=== PATIENT | male | born 1980 | race Two or more races ===

== ENCOUNTER 2016-10-13 23:12 | Emergency (ER) | payer BC, OTHER ==
[~2016-10-13] VITALS: Ht 182.9 cm; Wt 174.6 kg
[2016-10-14 00:46] LABS: Albumin 3.8 g/dL (3.4-5.0); Anion Gap 7 (5-15); Aspartate Aminotransferase 44 U/L (15-37); Basophils # (auto) 0 uL; Basophils % (auto) 0.5 % (0.0-2.0); Blood Urea Nitrogen 16 mg/dL (7-18); Calcium 9.2 mg/dL (8.5-10.1); Carbon Dioxide 31 mmol/L (21-32); Chloride 102 mmol/L (98-107); DEFINITIVE VIEW TRANSMISSION; Eosinophils # (auto) 0.2 uL; Eosinophils % (auto) 2.9 % (0.0-7.0); GFR African American 93 mL/min; GFR Non-African American 77 mL/min; Glucose 109 mg/dL (74-106); Hematocrit 49.4 % (41.0-53.0); Hemoglobin 15.9 g/dL (13.5-17.5); Lymphocytes # (auto) 1.9 uL; Lymphocytes % (auto) 23.9 % (10.0-50.0); Magnesium 1.7 mg/dL (1.6-2.6); Mean Corpuscular Hemoglobin 25.9 pg (28.0-32.0); Mean Corpuscular Hgb Conc. 32.3 g/dL (32.0-36.0); Mean Corpuscular Volume 80.4 fL (80.0-100.0); Mean Platelet Volume 7.9 fL (7.4-10.4); Monocytes # (auto) 0.5 uL; Neutrophils # (auto) 5.1 uL; Neutrophils % (auto) 66.7 % (37.0-80.0); Platelet Count (auto) 229 10^3/uL (140-450); Potassium 4.3 mmol/L (3.5-5.1); Sodium 140 mmol/L (136-145); White Blood Cell 7.8 10^3/uL (4.4-10.8)
[2016-10-14 00:51] LABS: Alkaline Phosphatase 93 U/L (45-117); Bilirubin, Total 0.5 mg/dL (0.2-1.0); Total Protein 7.7 g/dL (6.4-8.2)
[2016-10-14 00:54] LABS: B-Type Natriuretic Peptide < 5.0 pg/mL (0-100); Temperature: 22.5 C (20.0-25.0)
[2016-10-14] MEDS ORDERED: ONDANSETRON HCL 4 MG/2 ML VIAL IV ONE (04:45)
[2016-10-14] MEDS ORDERED: HYDROmorphone HCL 2 MG/ML VL IV ONE ×2 (04:45→06:15)
[2016-10-14 05:47] LABS: INR 1.05 (0.9-1.15); Partial Thromboplastin Time 36.3 sec (22.64-33.71); Prothrombin Time 11.4 sec (9.37-12.3)
[2016-10-14 06:27] LABS: Urine Bilirubin Negative (Negative); Urine Blood Negative /uL (Negative); Urine Color Yellow (Yellow); Urine Glucose Normal (Normal); Urine Ketone Negative (Negative); Urine Mucus FEW (None Seen); Urine Nitrite Negative (Negative); Urine RBC 4 /hpf (0 - 3); Urine Squamous Epithelial Cell FEW /hpf (<5); Urine Urobilinogen Normal (Negative); Urine pH 5.5 (5.0-8.0)
[2016-10-14 06:49] VITALS: BP 158/90
== END 2016-10-14 06:55 | disposition home or self-care (01) ==
LOC: ER 23:15
DX: R07.89 Other chest pain (principal); R09.1 Pleurisy; I10 Essential (primary) hypertension; G43.909 Migraine, unspecified, not intractable, without status migrainosus; Z88.8 Allergy status to other drugs, medicaments and biological substances; R42 Dizziness and giddiness
CPT/HCPCS: 36415; 70450; 71020; 80053; 81001; 83735; 83880; 84484; 85025; 85610; 85730; 93005; 96374; 96375; 96376; 99285; J1170; J2405

== ENCOUNTER → 2016-10-17 | Outpatient (CLI) | payer BC ==
[2016-10-17 15:24] LABS: Urine Bilirubin Negative (Negative); Urine Blood Negative /uL (Negative); Urine Color Yellow (Yellow); Urine Glucose Normal (Normal); Urine Ketone Negative (Negative); Urine Mucus FEW (None Seen); Urine Nitrite Negative (Negative); Urine RBC <1 /hpf (0 - 3); Urine Squamous Epithelial Cell FEW /hpf (<5); Urine Urobilinogen Normal (Negative); Urine pH 5.5 (5.0-8.0)
[2016-10-17 15:28] LABS: Basophils # (auto) 0 uL; Basophils % (auto) 0.7 % (0.0-2.0); DEFINITIVE VIEW TRANSMISSION; Eosinophils # (auto) 0.2 uL; Eosinophils % (auto) 3.6 % (0.0-7.0); Hematocrit 49.9 % (41.0-53.0); Hemoglobin 16.9 g/dL (13.5-17.5); Lymphocytes # (auto) 1.5 uL; Lymphocytes % (auto) 22.8 % (10.0-50.0); Mean Corpuscular Hgb Conc. 33.8 g/dL (32.0-36.0); Mean Corpuscular Volume 79.8 fL (80.0-100.0); Mean Platelet Volume 7.6 fL (7.4-10.4); Monocytes # (auto) 0.5 uL; Monocytes % (auto) 7.3 % (0.0-12.0); Neutrophils # (auto) 4.2 uL; Neutrophils % (auto) 65.6 % (37.0-80.0); Platelet Count (auto) 223 10^3/uL (140-450); White Blood Cell 6.4 10^3/uL (4.4-10.8)
[2016-10-17 16:09] LABS: Albumin 3.8 g/dL (3.4-5.0); BUN/Creatinine Ratio 13.7; Bilirubin, Total 0.6 mg/dL (0.2-1.0); Calcium 8.8 mg/dL (8.5-10.1); Potassium 4.3 mmol/L (3.5-5.1)
== END | disposition home or self-care (01) ==
LOC: LAB 14:59
DX: E78.5 Hyperlipidemia, unspecified (principal); R00.2 Palpitations; Z87.19 Personal history of other diseases of the digestive system; E66.3 Overweight
CPT/HCPCS: 36415; 80053; 80061; 81001; 83036; 84439; 84443; 85025; 85652

== ENCOUNTER 2017-10-04 06:06 | Inpatient (IN) | payer OTHER ==
[2017-09-06 12:14] LABS: Basophils # (auto) 0 uL; Eosinophils # (auto) 0.2 uL; Eosinophils % (auto) 3.6 % (0.0-7.0); Monocytes # (auto) 0.4 uL; Neutrophils # (auto) 3.3 uL; White Blood Cell 5.5 10^3/uL (4.4-10.8)
[2017-09-06 12:16] LABS: Basophils % (auto) 0.5 % (0.0-2.0); Hematocrit 48.7 % (41.0-53.0); Hemoglobin 16.1 g/dL (13.5-17.5); Lymphocytes # (auto) 1.6 uL; Lymphocytes % (auto) 29.1 % (10.0-50.0); Mean Corpuscular Hemoglobin 26.5 pg (28.0-32.0); Mean Corpuscular Hgb Conc. 33.1 g/dL (32.0-36.0); Monocytes % (auto) 7.1 % (0.0-12.0); Neutrophils % (auto) 59.7 % (37.0-80.0); Nucleated Red Blood Cells % 0.1 %; Platelet Count (auto) 214 10^3/uL (140-450); Red Blood Cells 6.09 10^6/uL (4.5-5.90); Red Cell Distribution Width 16.5 % (11.8-14.3)
[2017-09-06 12:29] LABS: INR 1.03 (0.9-1.15); Partial Thromboplastin Time 38.6 sec (22.64-33.71); Prothrombin Time 11.2 sec (9.37-12.3)
[2017-09-06 12:31] LABS: Urine Bacteria NONE SEEN /hpf (None Seen); Urine Blood Negative /uL (Negative); Urine Specific Gravity 1.029 (1.001-1.035); Urine WBC 12 /hpf (0 - 3)
[2017-09-06 12:38] LABS: Albumin 3.8 g/dL (3.4-5.0); BUN/Creatinine Ratio 11.2; Bilirubin, Total 0.4 mg/dL (0.2-1.0); Calcium 8.9 mg/dL (8.5-10.1); Total Protein 8.4 g/dL (6.4-8.2)
[2017-10-02 11:04] LABS: Urine WBC None Seen /hpf (0 - 3)
[2017-10-02 11:14] LABS: Basophils # (auto) 0 uL; Basophils % (auto) 0.4 % (0.0-2.0); Eosinophils # (auto) 0.2 uL; Eosinophils % (auto) 3.6 % (0.0-7.0); Hematocrit 44.8 % (41.0-53.0); Lymphocytes # (auto) 1.3 uL; Lymphocytes % (auto) 21.9 % (10.0-50.0); Mean Corpuscular Hemoglobin 26.8 pg (28.0-32.0); Mean Corpuscular Hgb Conc. 33.5 g/dL (32.0-36.0); Mean Corpuscular Volume 79.9 fL (80.0-100.0); Monocytes # (auto) 0.4 uL; Monocytes % (auto) 6.5 % (0.0-12.0); Neutrophils # (auto) 3.9 uL; Neutrophils % (auto) 67.6 % (37.0-80.0); Nucleated Red Blood Cells % 0.4 %; Platelet Count (auto) 178 10^3/uL (140-450); Red Blood Cells 5.61 10^6/uL (4.5-5.90); Red Cell Distribution Width 15.7 % (11.8-14.3); White Blood Cell 5.8 10^3/uL (4.4-10.8)
[2017-10-02 11:24] LABS: INR 1.07 (0.9-1.15); Partial Thromboplastin Time 36.5 sec (22.64-33.71); Prothrombin Time 11.7 sec (9.37-12.3)
[2017-10-02 11:37] LABS: Albumin 3.6 g/dL (3.4-5.0); BUN/Creatinine Ratio 19.3; Bilirubin, Total 0.5 mg/dL (0.2-1.0); Calcium 8.7 mg/dL (8.5-10.1); Potassium 3.9 mmol/L (3.5-5.1); Total Protein 7.8 g/dL (6.4-8.2); Urine Bacteria NONE SEEN /hpf (None Seen); Urine Blood Negative /uL (Negative)
[~2017-10-04] VITALS: Ht 182.9 cm; Wt 171.3 kg
[~2017-10-04 06:06] MED LIST: AMITR PO; AMITRIP PO; CHOL1TAB29 PO; DILT240C PO; ISOS30TA4 PO; LISI-646 PO; MESA0.37 PO; PANT40TA2 PO; PRAZ5CAP PO; SERT-274 PO
[2017-10-04] MEDS ORDERED: ceFAZolin 1GM/100ML 50 ML IV ONE (07:40)
[2017-10-04] MEDS ORDERED: InsuLIN REG 1unit/0.01ml Soln (100units/ml) ONE ×2 (07:46→09:26)
[2017-10-04] MEDS ORDERED: NEOMYCIN-BACITRACIN-POLYM 15GM TOP OINT TOP ONE (08:15)
[2017-10-04] MEDS ORDERED: MORPHINE SULFATE 4 MG/ML SYR/VIAL IV PRN ×3 (08:15→12:00)
[2017-10-04] MEDS ORDERED: NITROGLYCERIN 0.4 MG SL TAB SL PRN (08:15)
[2017-10-04] MEDS ORDERED: BUPIVACAINE W/ EPINEPH 0.25% INJ 50ML MDV ONE (08:15)
[2017-10-04] MEDS ORDERED: LIDOCAINE W/ EPINEPHRINE 1 % INJ 30ML ONE (08:15)
[2017-10-04] MEDS ORDERED: fentaNYL CITRATE 100 MCG/2 ML VL ONE (08:20)
[2017-10-04] MEDS ORDERED: MIDAZOLAM HCL 1MG/1ML-2 ML VIAL ONE (08:20)
[2017-10-04] MEDS ORDERED: KETOROLAC TROMETH 30 MG/ML 1ML VIAL ONE (08:29)
[2017-10-04] MEDS ORDERED: ETOMIDATE (2MG/ML) 20ML VIAL IV ONE (08:29)
[2017-10-04] MEDS ORDERED: METOCLOPRAMIDE HCL 5MG/ml INJ 2ml VIAL ONE (08:29)
[2017-10-04] MEDS ORDERED: DEXAMETHASONE SOD PHOS 10MG/1ML VIAL INJ ONE (08:29)
[2017-10-04] MEDS ORDERED: SUCCINYLCHOLINE CHLORIDE 20 MG/ML 10ML VIAL IV ONE (09:15)
[2017-10-04] MEDS ORDERED: ROCURONIUM 10MG/ML 10ML VIAL IV ONE (09:15)
[2017-10-04] MEDS ORDERED: NEOSTIGMINE 1 MG/ML INJ (10mg/10ML VIAL) ONE (09:54)
[2017-10-04] MEDS ORDERED: GLYCOPYRROLATE 0.2 MG/ML 1ML VIAL ONE (09:54)
[2017-10-04] MEDS ORDERED: MIDAZOLAM HCL 1MG/1ML-2 ML VIAL IV PRN (10:30)
[2017-10-04] MEDS ORDERED: ACCU-CHEK COMFORT CURVE STRIP VI ONE (10:30)
[2017-10-04] MEDS ORDERED: LABETALOL HCL 5 MG/ML 4ML SYRINGE IV PRN (10:30)
[2017-10-04] MEDS ORDERED: ePHEDrine SULFATE 50 MG/ML AMP IV PRN (10:30)
[2017-10-04] MEDS ORDERED: ONDANSETRON HCL 4 MG/2 ML VIAL IV ONE ×2 (10:30→10:40)
[2017-10-04] MEDS ORDERED: KETOROLAC TROMETH 30 MG/ML 1ML VIAL IV ONE (10:30)
[2017-10-04] MEDS ORDERED: ONDANSETRON HCL 4 MG/2 ML VIAL ONE (10:38)
[2017-10-04] MEDS ORDERED: DEXTROSE (50%) 50ML SYRG IV PRN ×2 (12:00→17:45)
[2017-10-04] MEDS ORDERED: ONDANSETRON HCL 4 MG/2 ML VIAL IV PRN (12:00)
[2017-10-04] MEDS ORDERED: metFORMIN HYDROCHLORIDE 500 MG TAB PO ONE (12:00)
[2017-10-04] MEDS ORDERED: PANTOPRAZOLE 40 MG TAB PO ONE (12:30)
[2017-10-04] MEDS ORDERED: DILTIAZEM HCL 180MG ER CAP PO ONE (12:30)
[2017-10-04] MEDS ORDERED: LISINOPRIL 10 MG TAB PO ONE (12:30)
[2017-10-04] MEDS ORDERED: SERTRALINE HCL 50 MG TAB PO ONE (12:30)
[2017-10-04] MEDS ORDERED: ISOSORBIDE MONONITRATE 60 MG TAB PO ONE (12:30)
[2017-10-04 13:00] VITALS: BP_SYST 112; BP_SYST 166; BP_DIAS 61; BP_DIAS 72
[2017-10-04] MEDS: PROMETHAZINE HCL 25 MG/ML 1ML IV PRN ×2 (13:04→17:03)
[2017-10-04 13:11] LABS: Basophils # (auto) 0 uL; Basophils % (auto) 0.2 % (0.0-2.0); Eosinophils # (auto) 0 uL; Eosinophils % (auto) 0.5 % (0.0-7.0); Lymphocytes # (auto) 0.7 uL; Monocytes # (auto) 0.2 uL; Monocytes % (auto) 2.4 % (0.0-12.0); Nucleated Red Blood Cells % 0.1 %
[2017-10-04 13:13] LABS: Hematocrit 46.1 % (41.0-53.0); Hemoglobin 15.2 g/dL (13.5-17.5); Lymphocytes % (auto) 10.2 % (10.0-50.0); Mean Corpuscular Hemoglobin 26.3 pg (28.0-32.0); Mean Corpuscular Volume 79.5 fL (80.0-100.0); Neutrophils # (auto) 5.9 uL; Neutrophils % (auto) 86.7 % (37.0-80.0); Platelet Count (auto) 186 10^3/uL (140-450); Red Cell Distribution Width 16.2 % (11.8-14.3); White Blood Cell 6.9 10^3/uL (4.4-10.8)
[2017-10-04 13:30] LABS: Albumin 3.7 g/dL (3.4-5.0); BUN/Creatinine Ratio 16.9; Bilirubin, Total 0.8 mg/dL (0.2-1.0); Calcium 8.6 mg/dL (8.5-10.1); Potassium 4.7 mmol/L (3.5-5.1); Total Protein 7.6 g/dL (6.4-8.2)
[2017-10-04 14:19] VITALS: BP 112/61
[2017-10-04 14:25] LABS: Urine Bacteria NONE SEEN /hpf (None Seen); Urine Blood Negative /uL (Negative); Urine Specific Gravity 1.019 (1.001-1.035); Urine WBC 24 /hpf (0 - 3)
[2017-10-04 17:00] VITALS: BP 120/62
[2017-10-04] MEDS ORDERED: InsuLIN REG 1unit/0.01ml Soln (100units/ml) SC SCH ×2 (17:00→22:00)
[2017-10-04] MEDS ORDERED: ACCU-CHEK COMFORT CURVE STRIP VI SCH (17:00)
[2017-10-04] MEDS: MORPHINE SULFATE 4 MG/ML SYR/VIAL IV PRN ×2 (17:03→22:06)
[2017-10-04] MEDS ORDERED: InsuLIN REG 1unit/0.01ml Soln (100units/ml) IV ONE (17:30)
[2017-10-04] MEDS: MESALAMINE 400mg Delayed Release Cap PO SCH (17:58)
[2017-10-04] MEDS: metFORMIN HYDROCHLORIDE 500 MG TAB PO SCH (17:58)
[2017-10-04] MEDS: ACCU-CHEK COMFORT CURVE STRIP VI SCH (20:42)
[2017-10-04] MEDS: InsuLIN REG 1unit/0.01ml Soln (100units/ml) SC SCH (20:42)
[2017-10-04 21:57] VITALS: BP 120/62
[2017-10-04 22:00] VITALS: BP 110/87
[2017-10-04] MEDS: AMITRIPTYLINE HCL 25 MG TAB PO SCH (22:05)
[2017-10-04] MEDS: ISOSORBIDE MONONITRATE 60 MG TAB PO SCH (22:05)
[2017-10-04] MEDS: HYDROcodone-ACET 5/325MG TAB PO PRN (23:59)
[2017-10-05] MEDS: ACCU-CHEK COMFORT CURVE STRIP VI SCH ×6 (00:01→22:59)
[2017-10-05] MEDS: MORPHINE SULFATE 4 MG/ML SYR/VIAL IV PRN ×4 (02:35→21:18)
[2017-10-05] MEDS: PROMETHAZINE HCL 25 MG/ML 1ML IV PRN ×4 (02:35→21:17)
[2017-10-05] MEDS: InsuLIN REG 1unit/0.01ml Soln (100units/ml) SC SCH ×6 (04:01→22:58)
[2017-10-05 05:45] VITALS: BP 136/72
[2017-10-05] MEDS: metFORMIN HYDROCHLORIDE 500 MG TAB PO SCH ×2 (06:05→18:07)
[2017-10-05] MEDS: HYDROcodone-ACET 5/325MG TAB PO PRN (06:06)
[2017-10-05 08:33] VITALS: BP 126/68
[2017-10-05] MEDS: DILTIAZEM HCL 180MG ER CAP PO SCH (08:57)
[2017-10-05] MEDS: PANTOPRAZOLE 40 MG TAB PO SCH (08:57)
[2017-10-05] MEDS: SERTRALINE HCL 50 MG TAB PO SCH (08:57)
[2017-10-05] MEDS: LISINOPRIL 10 MG TAB PO SCH (10:00)
[2017-10-05] MEDS ORDERED: ISOSORBIDE MONONITRATE 60 MG TAB PO SCH (10:00)
[2017-10-05 14:30] VITALS: BP 126/74
[2017-10-05] MEDS ORDERED: GLIMEPIRIDE 2 MG TAB PO ONE (15:00)
[2017-10-05] MEDS: DOCUSATE SOD 100 MG CAP PO SCH ×2 (15:15→21:17)
[2017-10-05] MEDS: HYDROcodone-ACET 10/325MG TAB PO PRN (16:40)
[2017-10-05 17:19] VITALS: BP 122/76
[2017-10-05] MEDS: MESALAMINE 400mg Delayed Release Cap PO SCH (18:06)
[2017-10-05] MEDS ORDERED: DEXTROSE (50%) 50ML SYRG IV PRN (19:15)
[2017-10-05] MEDS: ISOSORBIDE MONONITRATE 60 MG TAB PO SCH (21:16)
[2017-10-05] MEDS: AMITRIPTYLINE HCL 25 MG TAB PO SCH (21:17)
[2017-10-05 22:00] VITALS: BP 113/63
[2017-10-06] MEDS: HYDROcodone-ACET 10/325MG TAB PO PRN ×4 (00:23→15:44)
[2017-10-06 05:53] VITALS: BP 120/62
[2017-10-06] MEDS ORDERED: GLIMEPIRIDE 2 MG TAB PO SCH (07:00)
[2017-10-06 07:47] LABS: Potassium 4.1 mmol/L (3.5-5.1)
[2017-10-06 07:55] LABS: BUN/Creatinine Ratio 23.5; Calcium 8.5 mg/dL (8.5-10.1)
[2017-10-06 07:57] VITALS: BP 125/68
[2017-10-06] MEDS: metFORMIN HYDROCHLORIDE 500 MG TAB PO SCH ×2 (08:13→17:37)
[2017-10-06] MEDS: ACCU-CHEK COMFORT CURVE STRIP VI SCH ×3 (08:14→17:42)
[2017-10-06] MEDS: InsuLIN REG 1unit/0.01ml Soln (100units/ml) SC SCH ×3 (08:14→17:42)
[2017-10-06] MEDS: DOCUSATE SOD 100 MG CAP PO SCH (10:00)
[2017-10-06] MEDS: LISINOPRIL 10 MG TAB PO SCH (10:06)
[2017-10-06] MEDS: SERTRALINE HCL 50 MG TAB PO SCH (10:07)
[2017-10-06] MEDS: PANTOPRAZOLE 40 MG TAB PO SCH (10:08)
[2017-10-06] MEDS: DILTIAZEM HCL 180MG ER CAP PO SCH (10:08)
[2017-10-06] MEDS: PROMETHAZINE HCL 25 MG/ML 1ML IV PRN (11:53)
[2017-10-06 12:46] VITALS: BP 128/67
[2017-10-06 16:52] VITALS: BP 109/66
[2017-10-06] MEDS: MESALAMINE 400mg Delayed Release Cap PO SCH (17:38)
== END 2017-10-06 18:37 | disposition home or self-care (01) | DRG 711 ==
LOC: SUR 06:06 → TELE-WESTW 06:07 → WEST WING 10-05 19:46
PROVIDERS: ADMIT Urology; ATTEND Internal Medicine
PROC: 0VBK0ZZ Excision of Left Epididymis, Open Approach (ICD-10-PCS; principal; 2017-10-05)
PROC: 0VBG0ZZ Excision of Left Spermatic Cord, Open Approach (ICD-10-PCS; 2017-10-05)
PROC: 0VL Male Reproductive System, Occlusion (ICD-10-PCS; 2017-10-05)
DX: N43.3 Hydrocele, unspecified (principal); Z68.43 Body mass index [BMI] 50.0-59.9, adult; E11.65 Type 2 diabetes mellitus with hyperglycemia; N43.41 Spermatocele of epididymis, single; E66.01 Morbid (severe) obesity due to excess calories; F43.10 Post-traumatic stress disorder, unspecified; I25.10 Atherosclerotic heart disease of native coronary artery without angina pectoris; I10 Essential (primary) hypertension; G47.33 Obstructive sleep apnea (adult) (pediatric); M10.9 Gout, unspecified; Z72.0 Tobacco use; Z79.84 Long term (current) use of oral hypoglycemic drugs
CPT/HCPCS: 36415; 80048; 80053; 81001; 82962; 83036; 85025; 85610; 85730; 88302; 94660; J0330; J0690; J1100; J1815; J1885; J2250; J2405

== ENCOUNTER 2019-08-07 07:33 | Day surgery (SDC) | payer OTHER ==
[2019-08-05 14:33] LABS: Urine Bacteria NONE SEEN /hpf (None Seen); Urine Blood Negative /uL (Negative); Urine Mucus FEW (None Seen); Urine Specific Gravity 1.028 (1.001-1.035); Urine WBC 1 /hpf (0 - 3)
[2019-08-05 14:34] LABS: Basophils # (auto) 0 10 ^3/uL (0-0.2); Basophils % (auto) 0.5 % (0.0-2.0); Eosinophils # (auto) 0.1 10 ^3/uL (0-0.8); Eosinophils % (auto) 1.7 % (0.0-7.0); Hematocrit 47.7 % (41.0-53.0); Lymphocytes # (auto) 1.4 10 ^3/uL (0.4-5.4); Lymphocytes % (auto) 17.5 % (10.0-50.0); Mean Corpuscular Hemoglobin 27.1 pg (28.0-32.0); Mean Corpuscular Hgb Conc. 33.6 g/dL (32.0-36.0); Mean Corpuscular Volume 80.8 fL (80.0-100.0); Monocytes # (auto) 0.5 10 ^3/uL (0-1.3); Monocytes % (auto) 6.1 % (0.0-12.0); Neutrophils % (auto) 74.2 % (37.0-80.0); Nucleated Red Blood Cells % 0.2 %; Platelet Count (auto) 229 10^3/uL (140-450); Red Blood Cells 5.91 10^6/uL (4.5-5.90); White Blood Cell 8.1 10^3/uL (4.4-10.8)
[2019-08-05 14:45] LABS: INR 1.18 (0.9-1.15); Partial Thromboplastin Time 41.4 sec (23.64-32.05)
[2019-08-05 14:49] LABS: Calcium 9.2 mg/dL (8.5-10.1); Potassium 3.8 mmol/L (3.5-5.1)
[2019-08-05 14:52] LABS: BUN/Creatinine Ratio 24.3; Bilirubin, Total 0.7 mg/dL (0.2-1.0); Total Protein 8.2 g/dL (6.4-8.2)
[~2019-08-07] VITALS: Ht 182.9 cm; Wt 152.0 kg
[~2019-08-07 07:33] MED LIST changes: +ALLO100T PO; -AMITR PO; -AMITRIP PO; -CHOL1TAB29 PO; -DILT240C PO; -LISI-646 PO; -MESA0.37 PO; -PRAZ5CAP PO
[2019-08-07] MEDS ORDERED: ceFAZolin 1GM/50ML 50 ML IV ONE (08:04)
[2019-08-07] MEDS ORDERED: NEOMYCIN-BACITRACIN-POLYM 15GM TOP OINT TOP ONE (08:30)
[2019-08-07] MEDS ORDERED: LIDOCAINE W/ EPINEPHRINE 1% 20ML VIAL ONE (08:30)
[2019-08-07] MEDS ORDERED: SUCCINYLCHOLINE CHLORIDE 20 MG/ML 10ML VIAL IV ONE (08:42)
[2019-08-07] MEDS ORDERED: fentaNYL CITRATE 100 MCG/2 ML VL ONE ×2 (08:52→08:55)
[2019-08-07] MEDS ORDERED: PROPOFOL 10 MG/ML 20 ML IV ONE (08:55)
[2019-08-07] MEDS ORDERED: ONDANSETRON HCL 4 MG/2 ML VIAL ONE (10:29)
[2019-08-07] MEDS ORDERED: ONDANSETRON HCL 4 MG/2 ML VIAL IV ONE (10:30)
[2019-08-07] MEDS ORDERED: ONDANSETRON HCL 4 MG/2 ML VIAL IM ONE (10:30)
[2019-08-07] MEDS ORDERED: KETOROLAC TROMETH 15 mg/ml 1ML VL IV ONE (10:45)
[2019-08-07] MEDS ORDERED: KETOROLAC TROMETH 30 MG/ML 1ML VIAL ONE (10:49)
[2019-08-07] MEDS ORDERED: hydrALAZINE HCL 20 MG/ML VL IV PRN (11:00)
[2019-08-07] MEDS ORDERED: ONDANSETRON HCL 4 MG/2 ML VIAL IV PRN (11:00)
[2019-08-07] MEDS ORDERED: ePHEDrine SULFATE 50 MG/ML AMP IV PRN (11:00)
[2019-08-07 11:19] VITALS: BP 114/58
== END 2019-08-07 11:30 | disposition home or self-care (01) ==
LOC: SUR 07:33
PROVIDERS: ATTEND Urology
DX: N45.2 Orchitis (principal); N50.812 Left testicular pain; E66.9 Obesity, unspecified; E11.9 Type 2 diabetes mellitus without complications; G47.33 Obstructive sleep apnea (adult) (pediatric); K21.9 Gastro-esophageal reflux disease without esophagitis; M10.9 Gout, unspecified; Z87.891 Personal history of nicotine dependence; Z88.8 Allergy status to other drugs, medicaments and biological substances; Z68.42 Body mass index [BMI] 45.0-49.9, adult; Z98.890 Other specified postprocedural states; Z79.899 Other long term (current) drug therapy; Z79.84 Long term (current) use of oral hypoglycemic drugs
CPT/HCPCS: 36415; 54520; 80053; 81001; 82962; 85025; 85610; 85730; 88305; J0330; J0690; J1885; J2405; J2704; J3010